=== PATIENT | female | born 1990 | race Caucasian/White ===

== ENCOUNTER 2021-05-03 14:44 | Emergency (ER) | payer OTHER ==
[2021-05-03] MEDS ORDERED: NAPROXEN500 MG PO (17:36)
== END 2021-05-03 17:55 | disposition home or self-care (01) ==
LOC: FER 14:44
DX: M25.511 Pain in right shoulder (principal); M79.621 Pain in right upper arm
CPT/HCPCS: 73030; 93971

== ENCOUNTER 2021-05-13 14:27 | Emergency (ER) | payer OTHER ==
[~2021-05-13 14:27] MED LIST: NAPROXEN500 MG PO
[2021-05-13 15:29] LABS: BASOPHIL 0.2 % (0-2); EOSINOPHIL 0 % (0-5); HCT 38.3 % (37.0-47.0); HGB 12.4 g/dl (12.5-16.0); LYMPHOCYTE 8.8 % (15-48); MCH 30.1 pg (25.0-31.0); MCHC 32.4 g/dL (32.0-36.0); MONOCYTE 3.7 % (0-12); MPV 12.2 fL (6.0-9.5); NEUTROPHIL 86.9 % (41-80); NRBC 0; PLT 207 K/uL (150-400); RBC 4.12 M/uL (4.20-5.40); WBC 11.8 K/uL (4.0-10.5)
[2021-05-13 15:48] LABS: ALBUMIN 3.4 g/dL (3.4-5.0); BILIRUBIN - TOTAL 0.5 mg/dL (0.2-1.0); BUN/CREAT RATIO (CALC) 11.7 RATIO; C-REACTIVE PROTEIN 0.5 mg/dL (<=0.90); CREATININE 0.77 mg/dL (0.51-0.95); GLOBULIN (CALCULATION) 2.7 g/dL; POTASSIUM 4.2 mmol/L (3.5-5.1); TOTAL PROTEIN 6.1 g/dL (6.4-8.2)
[2021-05-13 16:07] LABS: BILIRUBIN NEGATIVE (NEGATIVE); BLOOD TRACE-INTACT Ery/uL (NEGATIVE); CLARITY HAZY (CLEAR); COLOR YELLOW (YELLOW); GLUCOSE (U) NORMAL (NORMAL); LEUKOCYTES NEGATIVE Leu/uL (NEGATIVE); NITRITE NEGATIVE (NEGATIVE); PROTEIN TRACE (LOW) mg/dL (NEGATIVE); UROBILINOGEN 0.2 mg/dL (0.2-1.0); pH 7.5 (5.0-9.0)
[2021-05-13 16:09] LABS: AMPHETAMINES NEGATIVE (NEGATIVE); BARBITURATES NEGATIVE (NEGATIVE); ECSTASY (MDMA) NEGATIVE (NEGATIVE); MARIJUANA (THC) NEGATIVE (NEGATIVE); METHADONE NEGATIVE (NEGATIVE); OPIATES NEGATIVE (NEGATIVE); OXYCODONE NEGATIVE (NEGATIVE)
[2021-05-13 16:15] LABS: HCG QUANTITATIVE <1 mIU/mL (0-6)
[2021-05-13 16:18] LABS: BACTERIA TRACE; URINARY RBC RARE; URINARY WBC RARE
[2021-05-13 18:07] LABS: LACTIC ACID 2.3 mmol/L (0.4-1.9)
== END 2021-05-13 21:26 | disposition home or self-care (01) ==
LOC: FER 14:27
PROVIDERS: Emergency Medicine; Emergency Medicine Emergency Medical Services
DX: R56.9 Unspecified convulsions (principal); F15.90 Other stimulant use, unspecified, uncomplicated; F17.210 Nicotine dependence, cigarettes, uncomplicated; V47.5XXA Car driver injured in collision with fixed or stationary object in traffic accident, initial encounter; Y92.410 Unspecified street and highway as the place of occurrence of the external cause
CPT/HCPCS: 36415; 70450; 71260; 80053; 80305; 81001; 82550; 83605; 83690; 84145; 84443; 84484; 84702; 85025; 86140; 93005; J7030; Q9967